=== PATIENT | male | born 1985 | race Caucasian/White ===

== ENCOUNTER 2023-01-26 09:07 | Outpatient (CLI) | payer BC ==
[2023-01-26] MEDS ORDERED: Iopamidol 370 76% 100 ML VIAL ONE (09:45)
== END 2023-01-26 09:08 | disposition home or self-care (01) ==
LOC: CT 09:07
PROVIDERS: ATTEND Internal Medicine Gastroenterology
DX: R10.30 Lower abdominal pain, unspecified (principal); R12 Heartburn; K59.09 Other constipation
CPT/HCPCS: 74177; Q9967